=== PATIENT | female | born 1935 | race Caucasian/White ===

== ENCOUNTER 2016-07-11 10:41 | Inpatient (IN) | payer OTHER, BC ==
[~2016-07-11] VITALS: Ht 160 cm; Wt 61.9 kg
[~2016-07-11 10:41] MED LIST: ASCORBIC ACID500 MG PO; Ascorbic Acid,Ester- PO; COLACE50 MG PO; DILANTIN100 MG PO; DILTIAZEM 24HR240 MG PO; DOCUSATE SODIU100 MG PO; Dilantin PO; Dulcolax PO; ECOTRIN325 MG PO; ENDOCET 5-3251 EACH PO; Ecotrin PO; FOLIC ACID1 MG PO; Folvite PO; LASIX10 MG PO; LOVASTATIN40 MG PO; LOVENOX40 MG/0.4 SC; Micro-K,K-Tab,K-Dur, PO; Miralax, Glycolax PO; NORVASC5 MG PO; Norvasc PO; OS-CAL 500+D T1 EAC1 PO; Oscal 500 w/Vitamin PO; PERCOCET 5/31 TABLET PO; PHENOBARB; PHENOBARBITAL30 MG PO; Percocet 5/325,Endoc PO; Senokot S,Pericolace PO; THERAGRAN1 TABLET PO; TYLENOL REGULA325 MG PO; Theragran PO; ZOCOR10 MG PO; Zocor PO
[2016-07-11 12:39] LABS: CHLORIDE 101 mEq/L (99-109); EOSINOPHIL (%) 1.6 % (0-5); EOSINOPHIL COUNT 0.1 K/uL (0-0.3); HEMATOCRIT 40.4 % (36.0-46.0); IMMATURE GRANULOCYTE (%) 0.3 % (0.0-0.7); INSTRUMENT ABS NEUTROPHIL CT 6.5 K/uL; LYMPHOCYTE COUNT 1.3 K/uL (1.0-2.8); MCH 30.3 PG (29.0-34.0); MCHC 33.2 G/DL (30.0-36.0); MCV 91.4 FL (83-99); MEAN PLAT.VOLUME 9.3 uM^3 (9.5-12.4); MONOCYTE (%) 7.8 % (3-12); MONOCYTE COUNT 0.7 K/uL (0-0.8); NEUTROPHIL (%) 74.6 % (45-76); NEUTROPHIL COUNT 6.5 K/uL (1.8-6.4); PLATELET COUNT 215 K/uL (156-360); RBC DIS.WIDTH-CV 13.3 % (11.8-14.6); RBC DIS.WIDTH-SD 44.9 % (39-53); RED BLOOD COUNT 4.42 M/uL (3.80-5.20); SODIUM 137 mEq/L (136-147)
[2016-07-11 12:40] LABS: INTER. NORMALIZED RATIO 1.1; PROTHROMBIN TIME 10.8 (9.2-11.2)
[2016-07-11 12:41] LABS: GLUCOSE 97 mg/dL (70-99)
[2016-07-11 12:42] LABS: ANION GAP 10 MEQ/L (2-14)
[2016-07-11 12:45] LABS: GFR ESTIMATE (CALCULATED) > 59 mL/min/; UREA NITROGEN (BUN) 10 mg/dL (9-23)
[2016-07-11 12:56] LABS: WHITE BLOOD COUNT 8.8 K/uL (4.1-10.2)
[2016-07-11 14:43] LABS: SAMPLE HEMOLYSIS CHECK 0; SAMPLE ICTERIC CHECK 0; SAMPLE LIPEMIA CHECK 0
[2016-07-11 16:05] VITALS: BP 148/69
[2016-07-11 16:55] LABS: METH RESISTANT S AUREUS PCR NEGATIVE (NEGATIVE)
[2016-07-11 17:01] LABS: PROBE CHECK PASS; SPECIMEN PROCESSING CONTROL PASS
[2016-07-11 19:00] VITALS: BP 140/74
[2016-07-11 20:00] VITALS: BP 164/78
[2016-07-11 21:00] VITALS: BP 171/64
[2016-07-11 22:00] VITALS: BP 144/67
[2016-07-11 23:00] VITALS: BP 146/74
[2016-07-12] VITALS (12 sets, daily range): BP systolic 103–171; BP diastolic 47–81
[2016-07-12 06:00] LABS: HEMATOCRIT 38.4 % (36.0-46.0); MCH 30.7 PG (29.0-34.0); MCHC 32.8 G/DL (30.0-36.0); MCV 93.4 FL (83-99); MEAN PLAT.VOLUME 9.3 uM^3 (9.5-12.4); PLATELET COUNT 190 K/uL (156-360); RBC DIS.WIDTH-CV 13.5 % (11.8-14.6); RBC DIS.WIDTH-SD 46.1 % (39-53); RED BLOOD COUNT 4.11 M/uL (3.80-5.20); WHITE BLOOD COUNT 6.3 K/uL (4.1-10.2)
[2016-07-12 06:14] LABS: ALKALINE PHOSPHATASE 103 IU/L (3-129); ANION GAP 9 MEQ/L (2-14); CHLORIDE 101 MEQ/L (99-109); GFR ESTIMATE (CALCULATED) > 59 mL/min/; GLUCOSE 83 mg/dL (70-99); SAMPLE HEMOLYSIS CHECK 0; SAMPLE ICTERIC CHECK 0; SAMPLE LIPEMIA CHECK 0; SODIUM 134 MEQ/L (136-147); TOTAL BILIRUBIN 0.3 MG/DL (0.0-1.0); UREA NITROGEN (BUN) 11 mg/dL (9-23)
[2016-07-12 06:19] LABS: POTASSIUM 3.9 MEQ/L (3.7-5.4)
[2016-07-13] VITALS (7 sets, daily range): BP systolic 113–193; BP diastolic 60–113
[2016-07-13 09:05] LABS: PHENOBARBITAL 18.9 MCG/ML (15-40)
[2016-07-14 00:37] VITALS: BP 166/75
[2016-07-14 04:30] VITALS: BP 141/73
[2016-07-14 08:21] VITALS: BP 160/65
[2016-07-14] MEDS ORDERED: PEPCID20 MG PO (11:50)
[2016-07-14] MEDS ORDERED: COLACE100 MG PO (11:51)
[2016-07-14] MEDS ORDERED: SENNA LAXATIVE8.6 MG PO (11:53)
== END 2016-07-14 09:20 | DRG 86 ==
LOC: EDOF → EME 10:41 → 3EAST 13:02 → EDOF 13:02 → 4WEST 13:02 → 3EAST 13:02 → 4WEST 15:20 → 3EAST 07-12 19:20
PROVIDERS: Emergency Medicine; Internal Medicine Pulmonary Disease; Surgery
DX: S06.5X0A Traumatic subdural hemorrhage without loss of consciousness, initial encounter (principal); W01.0XXA Fall on same level from slipping, tripping and stumbling without subsequent striking against object, initial encounter; I10 Essential (primary) hypertension; R56.9 Unspecified convulsions; E78.5 Hyperlipidemia, unspecified; G40.909 Epilepsy, unspecified, not intractable, without status epilepticus; R01.1 Cardiac murmur, unspecified; Z87.891 Personal history of nicotine dependence; R40.2413 Glasgow coma scale score 13-15, at hospital admission; I73.9 Peripheral vascular disease, unspecified; G81.94 Hemiplegia, unspecified affecting left nondominant side
CPT/HCPCS: 70450; 80048; 80053; 80184; 80185; 85025; 85027; 85610; 87641; 93306; 96125 GN; 97530 GP; 99281; 99285; J7042

== ENCOUNTER 2016-07-14 09:23 | Inpatient (IN) | payer OTHER, BC ==
[~2016-07-14] VITALS: Ht 154.9 cm; Wt 63.8 kg
[2016-07-14 09:19] VITALS: BP 141/67
[2016-07-14] MEDS ORDERED: PEPCID20 MG PO (11:50)
[2016-07-14] MEDS ORDERED: COLACE100 MG PO (11:51)
[2016-07-14] MEDS ORDERED: SENNA LAXATIVE8.6 MG PO (11:53)
[2016-07-14 15:17] VITALS: BP 163/69
[2016-07-14 23:50] VITALS: BP 180/82
[2016-07-15 00:11] VITALS: BP 142/80
[2016-07-15 05:00] LABS: HEMATOCRIT 34.2 % (36.0-46.0); MCH 30.4 PG (29.0-34.0); MCV 91.9 FL (83-99); MEAN PLAT.VOLUME 9.6 uM^3 (9.5-12.4); PLATELET COUNT 209 K/uL (156-360); RBC DIS.WIDTH-CV 13.1 % (11.8-14.6); RBC DIS.WIDTH-SD 44.9 % (39-53); RED BLOOD COUNT 3.72 M/uL (3.80-5.20); WHITE BLOOD COUNT 7.4 K/uL (4.1-10.2)
[2016-07-15 05:25] LABS: CHLORIDE 103 mEq/L (99-109); POTASSIUM 4.2 mEq/L (3.7-5.4); SODIUM 136 mEq/L (136-147)
[2016-07-15 05:27] LABS: GLUCOSE 95 mg/dL (70-99)
[2016-07-15 05:28] LABS: ANION GAP 10 MEQ/L (2-14)
[2016-07-15 05:29] LABS: TOTAL BILIRUBIN 0.3 mg/dL (0.0-1.0)
[2016-07-15 05:30] LABS: ALKALINE PHOSPHATASE 102 IU/L (3-129)
[2016-07-15 05:31] LABS: GFR ESTIMATE (CALCULATED) > 59 mL/min/
[2016-07-15 05:32] LABS: UREA NITROGEN (BUN) 14 mg/dL (9-23)
[2016-07-15 05:34] VITALS: BP 148/65
[2016-07-15 16:35] VITALS: BP 158/68
[2016-07-16 05:06] VITALS: BP 137/65
[2016-07-16 15:40] VITALS: BP 132/70
[2016-07-16 22:49] LABS: POINT-OF-CARE METER ID UU13113720
[2016-07-17 05:25] VITALS: BP 131/63
[2016-07-17 14:11] LABS: ADD MIUA? NO; BILIRUBIN NEGATIVE; BLOOD NEGATIVE; COLOR YELLOW ((YELLOW)); GLUCOSE (STRIP) NEGATIVE; KETONES NEGATIVE; LEUKOCYTES NEGATIVE; NITRITE NEGATIVE; PROTEIN (STRIP) NEGATIVE; SPECIFIC GRAVITY 1.009 (1.000-1.030); UROBILINOGEN 0.2 MG/DL (0.2-1.0)
[2016-07-17 15:24] VITALS: BP 158/66
[2016-07-18 05:14] VITALS: BP 153/77
[2016-07-18 15:18] VITALS: BP 143/66
[2016-07-19 04:57] VITALS: BP 156/62
[2016-07-19 14:59] VITALS: BP 155/69
[2016-07-20 05:05] VITALS: BP 163/74
[2016-07-20 15:03] VITALS: BP 162/69
[2016-07-21 05:10] VITALS: BP 142/67
[2016-07-21 05:44] LABS: EOSINOPHIL (%) 3.9 % (0-5); EOSINOPHIL COUNT 0.2 K/uL (0-0.3); HEMATOCRIT 32.9 % (36.0-46.0); IMMATURE GRANULOCYTE (%) 0.4 % (0.0-0.7); INSTRUMENT ABS NEUTROPHIL CT 3.2 K/uL; LYMPHOCYTE COUNT 1.5 K/uL (1.0-2.8); MCH 30.4 PG (29.0-34.0); MCHC 33.7 G/DL (30.0-36.0); MCV 90.1 FL (83-99); MONOCYTE (%) 12.3 % (3-12); MONOCYTE COUNT 0.7 K/uL (0-0.8); NEUTROPHIL (%) 56.7 % (45-76); NEUTROPHIL COUNT 3.2 K/uL (1.8-6.4); RBC DIS.WIDTH-SD 42.7 % (39-53); RED BLOOD COUNT 3.65 M/uL (3.80-5.20); WHITE BLOOD COUNT 5.6 K/uL (4.1-10.2)
[2016-07-21 05:49] LABS: PLATELET COUNT 282 K/uL (156-360)
[2016-07-21 06:03] LABS: ANION GAP 8 MEQ/L (2-14); CHLORIDE 98 MEQ/L (99-109); GFR ESTIMATE (CALCULATED) > 59 mL/min/; GLUCOSE 75 mg/dL (70-99); PHENOBARBITAL 16.8 MCG/ML (15-40); SAMPLE HEMOLYSIS CHECK 0; SAMPLE ICTERIC CHECK 0; SAMPLE LIPEMIA CHECK 0; SODIUM 133 MEQ/L (136-147); UREA NITROGEN (BUN) 15 mg/dL (9-23)
[2016-07-22 15:26] VITALS: BP 175/81
[2016-07-22 17:55] VITALS: BP 131/58
[2016-07-22] MEDS ORDERED: AMLODIPINE BESY10 MG PO (20:09)
[2016-07-22] MEDS ORDERED: LISINOPRIL10 MG PO (20:10)
[2016-07-22] MEDS ORDERED: LORAZEPAM0.5 MG PO (20:10)
[2016-07-22] MEDS ORDERED: HYDROCHLOROTHIA25 MG PO (20:10)
[2016-07-22] MEDS ORDERED: LIDOCAINE700 MG TD (20:10)
[2016-07-23 04:57] LABS: EOSINOPHIL (%) 2.8 % (0-5); EOSINOPHIL COUNT 0.2 K/uL (0-0.3); HEMATOCRIT 35.1 % (36.0-46.0); IMMATURE GRANULOCYTE (%) 0.4 % (0.0-0.7); INSTRUMENT ABS NEUTROPHIL CT 4.3 K/uL; LYMPHOCYTE COUNT 1.9 K/uL (1.0-2.8); MCH 30.4 PG (29.0-34.0); MCHC 33.6 G/DL (30.0-36.0); MCV 90.5 FL (83-99); MEAN PLAT.VOLUME 8.9 uM^3 (9.5-12.4); MONOCYTE COUNT 0.8 K/uL (0-0.8); NEUTROPHIL (%) 59.7 % (45-76); NEUTROPHIL COUNT 4.3 K/uL (1.8-6.4); PLATELET COUNT 301 K/uL (156-360); RBC DIS.WIDTH-CV 12.7 % (11.8-14.6); RBC DIS.WIDTH-SD 41.9 % (39-53); RED BLOOD COUNT 3.88 M/uL (3.80-5.20); WHITE BLOOD COUNT 7.2 K/uL (4.1-10.2)
[2016-07-23 05:04] VITALS: BP 153/69
[2016-07-23 05:11] LABS: CHLORIDE 95 mEq/L (99-109); POTASSIUM 3.6 mEq/L (3.7-5.4); SODIUM 129 mEq/L (136-147)
[2016-07-23 05:14] LABS: ANION GAP 9 MEQ/L (2-14)
[2016-07-23 05:15] LABS: GLUCOSE 95 mg/dL (70-99)
[2016-07-23 05:16] LABS: GFR ESTIMATE (CALCULATED) > 59 mL/min/
[2016-07-23 05:17] LABS: UREA NITROGEN (BUN) 13 mg/dL (9-23)
[2016-07-23 15:00] VITALS: BP 146/67
[2016-07-23 23:37] VITALS: BP 115/54
[2016-07-24 05:00] LABS: EOSINOPHIL (%) 2.2 % (0-5); EOSINOPHIL COUNT 0.2 K/uL (0-0.3); HEMATOCRIT 34.6 % (36.0-46.0); IMMATURE GRANULOCYTE (%) 0.4 % (0.0-0.7); INSTRUMENT ABS NEUTROPHIL CT 4.8 K/uL; LYMPHOCYTE COUNT 1.7 K/uL (1.0-2.8); MCH 30.3 PG (29.0-34.0); MCV 86.7 FL (83-99); MEAN PLAT.VOLUME 8.7 uM^3 (9.5-12.4); MONOCYTE (%) 8.2 % (3-12); MONOCYTE COUNT 0.6 K/uL (0-0.8); NEUTROPHIL (%) 65.8 % (45-76); NEUTROPHIL COUNT 4.8 K/uL (1.8-6.4); PLATELET COUNT 313 K/uL (156-360); RBC DIS.WIDTH-CV 12.3 % (11.8-14.6); RBC DIS.WIDTH-SD 39.4 % (39-53); RED BLOOD COUNT 3.99 M/uL (3.80-5.20); WHITE BLOOD COUNT 7.3 K/uL (4.1-10.2)
[2016-07-24 05:07] LABS: CHLORIDE 94 mEq/L (99-109); POTASSIUM 3.7 mEq/L (3.7-5.4); SODIUM 126 mEq/L (136-147)
[2016-07-24 05:08] LABS: MAGNESIUM 1.5 mg/dL (1.3-2.7)
[2016-07-24 05:09] LABS: GLUCOSE 103 mg/dL (70-99)
[2016-07-24 05:11] LABS: ANION GAP 9 MEQ/L (2-14)
[2016-07-24 05:13] LABS: GFR ESTIMATE (CALCULATED) > 59 mL/min/
[2016-07-24 05:14] LABS: UREA NITROGEN (BUN) 16 mg/dL (9-23)
[2016-07-24 05:15] LABS: URIC ACID 4.1 mg/dL (3.1-9.2)
[2016-07-24 05:16] VITALS: BP 138/70
[2016-07-24 08:08] LABS: POINT-OF-CARE METER ID UU14174215
[2016-07-24 08:13] LABS: BASE EXCESS 3.6 mEq/L (-3 to +3); BICARBONATE 26.5 mEq/L (22-26); CARBOXY HGB 2.5 % (0-5); METHEMOGLOBIN 1.6 % (0-1.5); PCO2 34 mm Hg (35-45); PO2 78 mm Hg (80-100)
[2016-07-24 08:14] LABS: COMMENTS - BLOOD GASES A+C+; FI02 21 %; SITE RR; TOTAL RESP RATE 16 resp/min
== END 2016-07-24 08:40 | DRG 945 ==
LOC: 3WEST 09:23
PROVIDERS: Hospitalist; Internal Medicine Nephrology; Internal Medicine Pulmonary Disease; Physical Medicine & Rehabilitation Pain Medicine
PROC: F07M0ZZ Range of Motion and Joint Mobility Treatment of Musculoskeletal System - Whole Body (ICD-10-PCS; principal; 2016-07-14)
DX: S06.5X0D Traumatic subdural hemorrhage without loss of consciousness, subsequent encounter (principal); E87.1 Hypo-osmolality and hyponatremia; G40.909 Epilepsy, unspecified, not intractable, without status epilepticus; Z60.2 Problems related to living alone; I10 Essential (primary) hypertension; E78.5 Hyperlipidemia, unspecified; S01.00XD Unspecified open wound of scalp, subsequent encounter; M19.90 Unspecified osteoarthritis, unspecified site; I45.9 Conduction disorder, unspecified; W03.XXXD Other fall on same level due to collision with another person, subsequent encounter; M85.80 Other specified disorders of bone density and structure, unspecified site; Z91.81 History of falling; K59.00 Constipation, unspecified; I65.23 Occlusion and stenosis of bilateral carotid arteries; E83.51 Hypocalcemia; I25.10 Atherosclerotic heart disease of native coronary artery without angina pectoris; R41.0 Disorientation, unspecified; I44.0 Atrioventricular block, first degree; R27.8 Other lack of coordination; R01.1 Cardiac murmur, unspecified; Z87.891 Personal history of nicotine dependence
CPT/HCPCS: 36600; 70450; 73564; 80048; 80053; 80184; 80185; 81003; 82533 91; 82607; 82803; 82948; 83735; 83935; 84300; 84550; 85025; 85027; 87086; 93005; 97110 GO; 97530 GP

== ENCOUNTER 2016-07-24 08:15 | Inpatient (IN) | payer OTHER, BC ==
[~2016-07-24 08:15] MED LIST changes: +AMLODIPINE BESY10 MG PO; +COLACE100 MG PO; +HYDROCHLOROTHIA25 MG PO; +LIDOCAINE700 MG TD; +LISINOPRIL10 MG PO; +LORAZEPAM0.5 MG PO; +PEPCID20 MG PO; +SENNA LAXATIVE8.6 MG PO
[2016-07-24 08:50] VITALS: BP 161/93
[2016-07-24 09:30] LABS: HEMATOCRIT 36.9 % (36.0-46.0); MCH 30.4 PG (29.0-34.0); MCHC 34.4 G/DL (30.0-36.0); MCV 88.3 FL (83-99); MEAN PLAT.VOLUME 8.6 uM^3 (9.5-12.4); PLATELET COUNT 306 K/uL (156-360); RBC DIS.WIDTH-CV 12.7 % (11.8-14.6); RBC DIS.WIDTH-SD 40.9 % (39-53); RED BLOOD COUNT 4.18 M/uL (3.80-5.20); WHITE BLOOD COUNT 7.4 K/uL (4.1-10.2)
[2016-07-24 09:58] LABS: TROP-I INTERPRETATION NEGATIVE; TROPONIN-I < 0.01 ng/mL (0.0-0.30)
[2016-07-24 10:04] LABS: ALKALINE PHOSPHATASE 135 IU/L (3-129); ANION GAP 9 MEQ/L (2-14); CHLORIDE 90 MEQ/L (99-109); GFR ESTIMATE (CALCULATED) > 59 mL/min/; GLUCOSE 96 mg/dL (70-99); POTASSIUM 3.7 MEQ/L (3.7-5.4); SAMPLE HEMOLYSIS CHECK 0; SAMPLE ICTERIC CHECK 0; SAMPLE LIPEMIA CHECK 0; SODIUM 126 MEQ/L (136-147); TOTAL BILIRUBIN 0.4 MG/DL (0.0-1.0); UREA NITROGEN (BUN) 14 mg/dL (9-23)
[2016-07-24 11:31] VITALS: BP 130/60
[2016-07-24 15:35] VITALS: BP 147/70
[2016-07-24 15:49] LABS: ADD MIUA? YES; BILIRUBIN NEGATIVE; BLOOD NEGATIVE; COLOR YELLOW ((YELLOW)); GLUCOSE (STRIP) NEGATIVE; KETONES NEGATIVE; LEUKOCYTES NEGATIVE; NITRITE NEGATIVE; PROTEIN (STRIP) NEGATIVE; SPECIFIC GRAVITY 1.004 (1.000-1.030); UROBILINOGEN 0.2 MG/DL (0.2-1.0)
[2016-07-24 15:54] LABS: BACTERIA NONE SEEN /HPF; EPITHELIAL CELLS RARE /HPF; HYALINE CASTS 0-5 /LPF; MUCUS NONE SEEN /LPF; RED BLOOD CELLS 15-20 /HPF (0-5); UCUL ADDED? NO; WHITE BLOOD CELLS 0-5 /HPF (0-5)
[2016-07-24 16:42] LABS: TROP-I INTERPRETATION NEGATIVE; TROPONIN-I < 0.01 ng/mL (0.0-0.30)
[2016-07-24 17:39] VITALS: BP 161/93
[2016-07-24 19:30] VITALS: BP 122/68
[2016-07-24 23:27] VITALS: BP 159/72
[2016-07-25 04:00] VITALS: BP 156/73
[2016-07-25 06:56] LABS: ANION GAP 11 MEQ/L (2-14); CHLORIDE 94 MEQ/L (99-109); GFR ESTIMATE (CALCULATED) > 59 mL/min/; GLUCOSE 93 mg/dL (70-99); SAMPLE HEMOLYSIS CHECK 0; SAMPLE ICTERIC CHECK 0; SAMPLE LIPEMIA CHECK 0; SODIUM 129 MEQ/L (136-147); UREA NITROGEN (BUN) 14 mg/dL (9-23)
[2016-07-25 07:02] LABS: EOSINOPHIL (%) 1.8 % (0-5); EOSINOPHIL COUNT 0.1 K/uL (0-0.3); HEMATOCRIT 36.6 % (36.0-46.0); IMMATURE GRANULOCYTE (%) 1.2 % (0.0-0.7); IMMATURE GRANULOCYTE COUNT 0.1 K/uL; LYMPHOCYTE COUNT 1.7 K/uL (1.0-2.8); MCH 30.3 PG (29.0-34.0); MCV 86.7 FL (83-99); MEAN PLAT.VOLUME 9.4 uM^3 (9.5-12.4); MONOCYTE (%) 10.3 % (3-12); MONOCYTE COUNT 0.8 K/uL (0-0.8); NEUTROPHIL (%) 64.7 % (45-76); PLATELET COUNT 288 K/uL (156-360); RBC DIS.WIDTH-CV 12.9 % (11.8-14.6); RBC DIS.WIDTH-SD 40.3 % (39-53); RED BLOOD COUNT 4.22 M/uL (3.80-5.20); WHITE BLOOD COUNT 7.7 K/uL (4.1-10.2)
[2016-07-25 07:20] VITALS: BP 150/67
[2016-07-25 11:24] VITALS: BP 99/53
[2016-07-25 15:39] VITALS: BP 168/77
[2016-07-25 20:40] VITALS: BP 183/94
[2016-07-26] VITALS: BP 165/77
[2016-07-26 03:27] VITALS: BP 139/71
[2016-07-26 06:31] LABS: EOSINOPHIL (%) 1.4 % (0-5); EOSINOPHIL COUNT 0.1 K/uL (0-0.3); IMMATURE GRANULOCYTE (%) 0.5 % (0.0-0.7); INSTRUMENT ABS NEUTROPHIL CT 4.3 K/uL; LYMPHOCYTE COUNT 1.4 K/uL (1.0-2.8); MCH 30.7 PG (29.0-34.0); MCHC 34.2 G/DL (30.0-36.0); MCV 89.7 FL (83-99); MEAN PLAT.VOLUME 9.3 uM^3 (9.5-12.4); MONOCYTE (%) 9.4 % (3-12); MONOCYTE COUNT 0.6 K/uL (0-0.8); NEUTROPHIL (%) 66.5 % (45-76); NEUTROPHIL COUNT 4.3 K/uL (1.8-6.4); PLATELET COUNT 294 K/uL (156-360); RBC DIS.WIDTH-SD 42.6 % (39-53); RED BLOOD COUNT 3.68 M/uL (3.80-5.20); WHITE BLOOD COUNT 6.5 K/uL (4.1-10.2)
[2016-07-26 06:59] LABS: ALKALINE PHOSPHATASE 129 IU/L (3-129); ANION GAP 9 MEQ/L (2-14); CHLORIDE 100 MEQ/L (99-109); GFR ESTIMATE (CALCULATED) > 59 mL/min/; GLUCOSE 84 mg/dL (70-99); POTASSIUM 3.7 MEQ/L (3.7-5.4); SAMPLE HEMOLYSIS CHECK 0; SAMPLE ICTERIC CHECK 0; SAMPLE LIPEMIA CHECK 0; SODIUM 134 MEQ/L (136-147); UREA NITROGEN (BUN) 13 mg/dL (9-23)
[2016-07-26 07:08] LABS: TOTAL BILIRUBIN 0.3 MG/DL (0.0-1.0)
[2016-07-26 08:30] VITALS: BP 165/70
[2016-07-26] MEDS ORDERED: DUONEB 2.5-0.5 M3 ML AEROSOL (11:53)
[2016-07-26] MEDS ORDERED: FUROSEMIDE20 MG PO (11:54)
[2016-07-26] MEDS ORDERED: PHENOBARBITAL32.4 MG PO (12:03)
[2016-07-26] MEDS ORDERED: SODIUM CHLORIDE1 G1 PO (12:04)
[2016-07-26 16:11] VITALS: BP 129/60
== END 2016-07-26 15:16 | DRG 641 ==
LOC: 4EAST 08:15
PROVIDERS: Hospitalist
DX: E87.1 Hypo-osmolality and hyponatremia (principal); F05 Delirium due to known physiological condition; R44.3 Hallucinations, unspecified; I44.1 Atrioventricular block, second degree; R45.1 Restlessness and agitation; G47.00 Insomnia, unspecified; R53.1 Weakness; S06.5X0D Traumatic subdural hemorrhage without loss of consciousness, subsequent encounter; G40.909 Epilepsy, unspecified, not intractable, without status epilepticus; I10 Essential (primary) hypertension; E78.5 Hyperlipidemia, unspecified; M19.90 Unspecified osteoarthritis, unspecified site; I35.0 Nonrheumatic aortic (valve) stenosis; E66.9 Obesity, unspecified; R00.1 Bradycardia, unspecified; R09.02 Hypoxemia; Z68.26 Body mass index [BMI] 26.0-26.9, adult; Z60.2 Problems related to living alone; Z09 Encounter for follow-up examination after completed treatment for conditions other than malignant neoplasm; Z87.891 Personal history of nicotine dependence; Z82.49 Family history of ischemic heart disease and other diseases of the circulatory system
CPT/HCPCS: 70551; 71010; 80048; 80053; 81003; 83605; 84443; 84484; 85025; 85027; 87641; 94799; J3475

== ENCOUNTER 2017-02-28 11:19 | Emergency (ER) | payer OTHER, BC ==
[~2017-02-28] VITALS: Ht 160 cm; Wt 59.0 kg
[~2017-02-28 11:19] MED LIST changes: +DUONEB 2.5-0.5 M3 ML AEROSOL; +FUROSEMIDE20 MG PO; +PHENOBARBITAL32.4 MG PO; +SODIUM CHLORIDE1 G1 PO
[2017-02-28 15:15] VITALS: BP 112/68
== END 2017-02-28 15:16 | disposition home or self-care (01) ==
LOC: EME 11:19
PROC: 3E0234Z Introduction of Serum, Toxoid and Vaccine into Muscle, Percutaneous Approach (ICD-10-PCS; principal; 2017-02-28)
DX: S00.83XA Contusion of other part of head, initial encounter (principal); S00.31XA Abrasion of nose, initial encounter; S60.415A Abrasion of left ring finger, initial encounter; S60.042A Contusion of left ring finger without damage to nail, initial encounter; S60.221A Contusion of right hand, initial encounter; I10 Essential (primary) hypertension; E78.5 Hyperlipidemia, unspecified; R56.9 Unspecified convulsions; Z87.891 Personal history of nicotine dependence; Z91.018 Allergy to other foods; Y92.481 Parking lot as the place of occurrence of the external cause
CPT/HCPCS: 99281; 99283